=== PATIENT | female | born 1970 | race Caucasian/White ===

== ENCOUNTER 2021-03-20 11:53 | Emergency (ER) | payer SELFPAY ==
[~2021-03-20] VITALS: Ht 175.3 cm; Wt 82.1 kg
[2021-03-20] MEDS ORDERED: KETOROLAC TROMETHAMINE 60 MG/2 ML VIAL IM ONE (13:00)
[2021-03-20] MEDS ORDERED: TYLENOL # 31 EA PO (13:16)
[2021-03-20 13:24] VITALS: BP 154/86
== END 2021-03-20 13:20 | disposition home or self-care (01) ==
LOC: FSED 12:10
DX: M25.562 Pain in left knee (principal); M25.561 Pain in right knee; M25.571 Pain in right ankle and joints of right foot; S93.401A Sprain of unspecified ligament of right ankle, initial encounter; M12.862 Other specific arthropathies, not elsewhere classified, left knee; M12.861 Other specific arthropathies, not elsewhere classified, right knee; F17.210 Nicotine dependence, cigarettes, uncomplicated
CPT/HCPCS: 73562 ×2; 73610; 96372; 99283; J1885